=== PATIENT | female | born 1950 | race Caucasian/White ===

== ENCOUNTER 2024-05-31 08:16 | Inpatient (IN) | payer MEDICARE, OTHER ==
[~2024-05-31] VITALS: Ht 167.6 cm; Wt 132.2 kg
--- NOTE | 2024-05-31 14:00 | NUR ---
PT ARRIVED TO ROOM 305 VIA AMBULANCE FROM [facility]. TRANSFERRED TO BED WITH 4 PERSON ASSIST. SKIN APPEARS INTACT OTHER THAN REDNESS TO COCCYX WHICH IS BLANCHABLE. ABLE TO ANSWER QUESTIONS APPROPRIATELY.
[2024-05-31 14:10] VITALS: BP 102/36
[2024-05-31] MEDS ORDERED: Acetaminophen 325 MG TABLET PO PRN (15:35)
[2024-05-31] MEDS ORDERED: FLU VACC TS2024-25(6MOS UP)/PF 45 MCG/0.5 ML SYRINGE IM SCH (15:35)
[2024-05-31] MEDS ORDERED: ABILIFY MYCITE2 M2 PO (15:39)
[2024-05-31] MEDS ORDERED: ASCO500 PO (15:39)
[2024-05-31] MEDS ORDERED: SENNA LAXATIVE8.6 MG PO (15:40)
[2024-05-31] MEDS ORDERED: Calcium Carbon500 MG PO (15:41)
[2024-05-31] MEDS ORDERED: MIRALAX17 GM PO (15:41)
[2024-05-31] MEDS ORDERED: FURO40 PO (15:43)
[2024-05-31] MEDS ORDERED: ESCI10 PO (15:43)
[2024-05-31] MEDS ORDERED: KETO15TC TOP (15:44)
[2024-05-31] MEDS ORDERED: LEVOCETIRIZINE D5 MG PO ×2 (15:49→16:00)
[2024-05-31] MEDS ORDERED: OXAYDO5 M2 PO (15:49)
[2024-05-31] MEDS ORDERED: ATOR80 PO (15:50)
[2024-05-31] MEDS ORDERED: INSULIN LI100 UNIT/6 SC (15:52)
[2024-05-31] MEDS ORDERED: METO25ER PO (15:53)
[2024-05-31] MEDS ORDERED: FLUTICASONE PRO12 G1 INH (15:54)
[2024-05-31] MEDS ORDERED: TIZA4 PO (15:56)
[2024-05-31] MEDS ORDERED: ALBU90OI INH (15:57)
[2024-05-31] MEDS ORDERED: Vitamin D1000 UNI1 PO (15:59)
[2024-05-31] MEDS ORDERED: EZET10 PO (16:00)
[2024-05-31] MEDS ORDERED: NITR.4SL SL (16:01)
[2024-05-31] MEDS ORDERED: INSULANI SC (16:10)
[2024-05-31] MEDS ORDERED: GABA100 PO (16:10)
[2024-05-31] MEDS ORDERED: PANT40 PO (16:11)
[2024-05-31] MEDS ORDERED: MECL25 PO (16:12)
[2024-05-31] MEDS ORDERED: NYSTOP15 GM TOP (16:13)
[2024-05-31] MEDS ORDERED: Magnesium Hydroxide Conc 10 ML UDC PO PRN (16:35)
[2024-05-31] MEDS ORDERED: Bisacodyl 10 MG Supp PR PRN (16:40)
[2024-05-31] MEDS ORDERED: Insulin Glargine-Yfgn 100 Unit/mL 3 ML SYR SC SCH ×2 (17:00→21:00)
[2024-05-31] MEDS ORDERED: Calcium Carbonate 500 MG Tab Chew PO PRN (17:20)
[2024-05-31] MEDS ORDERED: Meclizine HCl 25 MG Tab PO PRN ×2 (17:20→17:40)
[2024-05-31] MEDS ORDERED: Nitroglycerin 0.4 MG SUBL SL PRN (17:20)
[2024-05-31] MEDS ORDERED: OxyCODONE HCL 5 MG TAB PO PRN (17:25)
[2024-05-31] MEDS ORDERED: Albuterol HFA200 ACT/6.7 GM INH INH PRN (17:30)
[2024-05-31] MEDS ORDERED: Mometasone Furoate Inhaler 220 mcg 14 ACT INH SCH (17:35)
--- NOTE | 2024-05-31 18:31 | NUR ---
SHIFT SUMMARY: PT A&OX4/BED REST WITH BATHROOM PRIVLEDGES AT THIS TIME DUE TO SYMPTOMATIC HYPOTENSION. SHE IS IN BED, SITTING UP EATING DINNER, CALL YOLANDA DUNLAP, NO SIGNS OR SYMPTOMS OF DISTRESS. TELE CALLED AT 1717 TO REPORT A 2.18 SEC PAUSE; THIS RN WAS PRESENT THAT THAT TIME AND PATIENT WAS ALERT AND TALKING WITH ME; NO SYMPTOMS. THEY CALLED AGAIN AT 182 TO REPORT ANOTHER PAUSE OF 2.3 SECS. PATIENT AGAIN ALERT AND NO SYMPTOMS. CALLED DR. MASON AND NOTIFIED HIM. NO NEW ORDERS. PLAN OF CARE ONGOING. HD TOMORROW 06/01/24.
[2024-05-31] MEDS ORDERED: Ondansetron HCl 2 MG / ML 2ML Vial IV PRN (19:20)
[2024-05-31 19:34] VITALS: BP 128/61
[2024-05-31] MEDS ORDERED: Atorvastatin 40 MG Tab PO SCH (21:00)
[2024-05-31] MEDS ORDERED: Sennosides 8.6 MG Tab PO SCH (21:00)
[2024-05-31] MEDS ORDERED: Docusate Sodium 100 MG Cap PO SCH (21:00)
[2024-05-31] MEDS ORDERED: Insulin Human Lispro 100 Units/ML 3ML Syringe SC SCH (21:00)
[2024-05-31] MEDS ORDERED: PRED FORTE5 ML BOTHEYES (22:50)
[2024-06-01] VITALS (14 sets, daily range): BP systolic 70–135; BP diastolic 44–86
--- NOTE | 2024-06-01 05:08 | NUR ---
SHIFT SUMMARY PATIENT IS ALERT AND ORIENTED. PATIENT HAS HAD NO ACUTE EVENTS EVENTS THIS SHIFT. PATIENT HAS HAD NO COMPLAINTS OF NAUSEA, SOB OR VOMITTING THIS SHIFT. PATIENT HAS COMPLAINED OF PAIN THIS SHIFT. PATIENT HAS BEEN ON TELE AND HAS ONE EVENT OF PATIENT BRADYING DOWN TO 38 BPM. PATIENT WAS SLEEPING AND NONSYMPTOMATIC DURING EVENT. PATIENT HAS BEEN NPO SINCE MIDNIGHT FOR POSSIBLE STRESS TEST TODAY. BED ALARM IS ON. BED IN LOCKED AND LOWEST POSITION.
[2024-06-01 05:57] LABS: BASOPHILS ABSOLUTE AUTO 0.03 K/mm3 (0.00-0.23); BASOPHILS PERCENT AUTO 0 % (0-2); EOSINOPHILS ABSOLUTE AUTO 0.07 K/mm3 (0.00-0.68); EOSINOPHILS PERCENT AUTO 1 % (0-6); Hematocrit 29.8 % (33.0-51.0); Hemoglobin 9.3 g/dL (11.5-16.0); IMMATURE GRAN ABSOLUTE AUTO 0.15 K/mm3 (0.00-0.10); IMMATURE GRAN PERCENT AUTO 2 % (0-1); LYMPHOCYTES ABSOLUTE AUTO 0.94 K/mm3 (0.84-5.20); LYMPHOCYTES PERCENT AUTO 11 % (21-46); MONOCYTES ABSOLUTE AUTO 0.64 K/mm3 (0.16-1.47); MONOCYTES PERCENT AUTO 8 % (4-13); Mean Corpuscular HGB 32.1 pg (26.0-34.0); Mean Corpuscular HGB Conc 31.2 g/dL (31.5-36.5); Mean Corpuscular Volume 103 fL (80-100); Mean Platelet Volume 10.4 fL (9.1-12.4); NEUTROPHILS ABSOLUTE AUTO 6.51 K/mm3 (1.96-9.15); NEUTROPHILS PERCENT AUTO 78 % (41-73); Platelet Count 213 K/mm3 (150-400); RDW Standard Deviation 48.5 fL (35.1-46.3); White Blood Cell Count 8.34 K/mm3 (4.00-11.30)
[2024-06-01 06:30] LABS: Albumin, Blood 2.9 g/dL (3.4-5.0); Albumin/Globulin Ratio 0.8 (0.8-1.8); Bilirubin, Total 0.3 mg/dL (0.1-1.0); Bun/Creatinine Ratio 9.3 (12.0-20.0); Calcium, Blood 9.5 mg/dL (8.5-10.1); Creatinine, Blood 6.68 mg/dL (0.40-1.00); Globulin, Blood 3.8 g/dL (2.2-4.0); Potassium, Blood 4.8 mmol/L (3.5-5.5); Total Protein, Blood 6.7 g/dL (6.4-8.2)
[2024-06-01] MEDS ORDERED: Pantoprazole Sodium 40 MG Tab PO SCH (07:30)
[2024-06-01] MEDS ORDERED: OxyCODONE HCL 5 MG TAB PO PRN (07:30)
[2024-06-01] MEDS ORDERED: Midodrine 5 MG Tab PO PRN (08:00)
[2024-06-01] MEDS ORDERED: Ezetimibe 10 MG Tab PO SCH (09:00)
[2024-06-01] MEDS ORDERED: Citalopram Hydrobromide 10 MG TAB PO SCH (09:00)
[2024-06-01] MEDS ORDERED: Anticoagulant Sod Citrate Soln 3 ML SYR INJ PRN (09:00)
[2024-06-01] MEDS ORDERED: Gabapentin 100 MG Cap PO SCH (09:00)
[2024-06-01] MEDS ORDERED: Ascorbic Acid 500 MG Tab PO SCH (09:00)
[2024-06-01] MEDS ORDERED: ARIPiprazole 2 MG Tablet PO SCH (09:00)
[2024-06-01] MEDS ORDERED: Heparin Sodium,Porcine 5,000 UNIT/0.5 ML SDV SC SCH (09:00)
[2024-06-01] MEDS ORDERED: Midodrine 5 MG Tab PO ONE (10:25)
--- NOTE | 2024-06-01 10:38 | NUR ---
PT UNABLE TO RECEIVE DIALYSIS TODAY DUE TO LOW BP. NOTIFIED, MIDODRINE ORDERED.
--- NOTE | 2024-06-01 12:28 | NUR ---
PT TO MTX ROOM FOR DIALYSIS POST NUCLEAR MED STUDIES. PT IS ALET AND ORIENTED, PLEASANT AND COOPERATIVE. PT IS CHRONIC DIALYSIS FROM [facility], TRANSFERRED TO THIS FACILITY DUE TO ORTHOSTATIC HYPOTENSION. PT LAST HAD DIALYSIS ON 05/29/24 IN [place]. THEY REMOVED APPROX 3LITRES OF FLUID. THIS IS STANDARD FOR HER. DR ANDREWS CONTACTED AND TX NOT INITIATED DUE TO HYPOTENSION. BP 68/24 AND THEN 75/28. REPORT CALLED TO PADMINI VU RN. PT RETURNED TO MEDICAL FLOOR VIA BED. JERAMY
[2024-06-01] MEDS ORDERED: Midodrine 5 MG Tab PO SCH (14:00)
[2024-06-01 15:09] LABS: Base Excess Venous 4.6 mmol/L; Bicarbonate Venous 27.9 mmol/L (24.0-30.0); PCO2 Venous 53.4 mmHg (38-42); pH Blood Venous 7.36 (7.34-7.37)
--- NOTE | 2024-06-01 15:28 | NUR ---
PT TRANSFERED TO PCU BY PRIMARY RN AND SCIENTIFIC ADVISOR. ASSISTANT AT SURGERY REPORTED TO THIS RN THAT BP WAS LOW. THIS RN TO ROOM TO CHECK ON PATIENT. PATIENT WAS LETHARGIC, FALLING ASLEEP DURING CONVERSATION STATING SHE WAS DIZZY. MD NOTIFIED. MIDODRINE INCREASED. PT REMAINED DROWSY AND DIFFICULT TO STIMULATE. SPO2 <90%, O2 APPLIED, RT TO SET UP HOME CPAP. CPAP ON WITH 2L BLEED IN TO MAINTAIN SPO2 >90%. BP REMAINED LOW WITH MAPS RANGING FROM LOW 50S-MID 60S. MD NOTIFIED AGAIN AND PT MOVED TO PCU FOR CLOSER MONITORING. BEDSIDE REPORT GIVEN TO PCU PRIMARY RN. PT EDUCATION ON NEED TO TRANSFER. THIS RN NOTIFIED SPOUSE OF TRANSFER.
--- NOTE | 2024-06-01 17:51 | NUR ---
PT SUMMARY; PT TRANSFERRED FROM MEDICAL FLOOR AT APPROX 1400. PT IS HERE FOR HYPOTENSION. PT HAD DIALYSIS THIS MORNING AND WAS UNABLE TO FINISH DUE TO HYPOTENSION. PT WAS ON 2L OF O2 VIA NASAL CANNULA UPON ARRIVAL, HOME CPAP AT THE BEDSIDE. VBG WAS DONE UPON ARRIVAL CO2 ON THE 50'S, DR JACOME CAME BY TO SEE PT ECHO WAS ORDERED. DR ANDREWS WAS CONSULTED ABLE TO COME BY AND SEE PT THIS AFTERNOON WELL. PT DOING OKAY AT THIS TIME, WILL WAIT FOR ECHO TO BE DONE POSSIBLY IN AM AND DIALYZE TOMMOROW IF PT TOLERATES, OKAY TO CNTINUE MIDODRINE AT THIS TIME. SBP 90-110'S, DBP 40-50'S, MAP KEPT ABOVE 60'S, SATS ABOVE 95% ON 2L OF O2, HRR SR 60'S, PT DENIES CHEST PAIN/PRESSURE. AFEBRILE. PT ALERT AND ORIENTED X3-4 FORGETFUL AT TIMES. PT NOT MAKING MUCH URINE AT THIS TIME BUT ABLE TO TELL IF SHE NEEDS TO GO, ATTENDS IN [place]. PT CURRENTLY BEING LIFTED TO REPOSITION DUE TO WEAKNESS. PT NOW EATING DINNER WITH NO ISSUES. PT TO BE NPO AT MIDNIGHT FOR SECOND PORTION OF STRESS IN AM. NO CAFFEINE AT THIS TIME, PT HAS BEEN CALLING APPROPRIATELY, WILL REPORT TO ONCOMING SHIFT
[2024-06-02] VITALS (17 sets, daily range): BP systolic 95–137; BP diastolic 43–71
[2024-06-02 04:27] LABS: BASOPHILS ABSOLUTE AUTO 0.06 K/mm3 (0.00-0.23); BASOPHILS PERCENT AUTO 1 % (0-2); EOSINOPHILS ABSOLUTE AUTO 0.17 K/mm3 (0.00-0.68); EOSINOPHILS PERCENT AUTO 2 % (0-6); Hematocrit 29.2 % (33.0-51.0); Hemoglobin 9.1 g/dL (11.5-16.0); IMMATURE GRAN ABSOLUTE AUTO 0.21 K/mm3 (0.00-0.10); IMMATURE GRAN PERCENT AUTO 2 % (0-1); LYMPHOCYTES ABSOLUTE AUTO 1.85 K/mm3 (0.84-5.20); LYMPHOCYTES PERCENT AUTO 19 % (21-46); MONOCYTES ABSOLUTE AUTO 1.32 K/mm3 (0.16-1.47); MONOCYTES PERCENT AUTO 14 % (4-13); Mean Corpuscular HGB 31.8 pg (26.0-34.0); Mean Corpuscular HGB Conc 31.2 g/dL (31.5-36.5); Mean Corpuscular Volume 102 fL (80-100); Mean Platelet Volume 10.7 fL (9.1-12.4); NEUTROPHILS ABSOLUTE AUTO 5.94 K/mm3 (1.96-9.15); NEUTROPHILS PERCENT AUTO 62 % (41-73); Platelet Count 207 K/mm3 (150-400); RDW Coefficient Variation 13.3 % (11.7-14.2); RDW Standard Deviation 49.7 fL (35.1-46.3); Red Blood Cell Count 2.86 M/mm3 (3.80-5.20); White Blood Cell Count 9.55 K/mm3 (4.00-11.30)
[2024-06-02 04:47] LABS: Albumin, Blood 2.9 g/dL (3.4-5.0); Anion Gap 16 mmol/L (3-11); Blood Urea Nitrogen 77 mg/dL (8-24); Bun/Creatinine Ratio 9.8 (12.0-20.0); CO2, Blood 25 mmol/L (21-32); Calcium, Blood 9.1 mg/dL (8.5-10.1); Chloride, Blood 95 mmol/L (98-108); Creatinine, Blood 7.87 mg/dL (0.40-1.00); Glomerular Filtration Rate 5 (60-); Glucose, Blood 112 mg/dL (70-99); Iron Serum 41 ug/dL (50-170); Percent Saturation 17.7 % (15.0-50.0); Phosphorus, Blood 5.4 mg/dL (2.5-4.9); Potassium, Blood 4.3 mmol/L (3.5-5.5); Sodium, Blood 132 mmol/L (136-145); Total Iron Binding Capacity 231 ug/dL (250-450)
--- NOTE | 2024-06-02 04:57 | NUR ---
SHIFT SUMMARY S/P ORTHOSTATIC HYPOTENSION. NO ACUTE CHANGES OVERNIGHT. PT REMAINED MILDLY HYPOTENSIVE T/O NIGHT. BP IMPROVED WHEN PT WOKEN UP FOR READINGS. TELE - SINUS RHYTHM @72. O2 SAT >90% ON 2L O2 c HOME CPAP, PT DESAT TO MID 80s WHEN CPAP REMOVED. PT NPO SINCE MIDNIGHT R/T ANTICI[ATED PART 2 OF STRESS TEST TODAY. BEDREST AT THIS TIME, Q2 TURNS c CEILING LIFT. CALL LIGHT IN REACH, BED IN LOWEST POSITION, WILL REPORT TO DAY RN.
--- NOTE | 2024-06-02 07:59 | NUR ---
ECHO CURRENTLY GETTING DONE IN ROOM. PT CAN HAVE BREAKFAST AFTER ECHO BUT WILL HOLD LUNCH FOR A STRESS TEST THIS AFTERNOON.
[2024-06-02] MEDS ORDERED: Insulin Glargine-Yfgn 100 Unit/mL 3 ML SYR SC SCH (09:00)
--- NOTE | 2024-06-02 09:02 | NUR ---
CALL TO : A CALL WAS PLACED TO DR. PEÑA REGARDING WHETHER OR NOT SHE WAS GOING TO GET DIALYSIS OR NOT TODAY. HE ASKED FOR HER LAST BLOOD PRESSURE AND STATED IF HER SYSTOLIC IS >90 THEN SHE WOULD GET DIALYSIS TODAY. HE IS GOING TO PUT IN ORDERS FOR DIALYSIS.
[2024-06-02] MEDS ORDERED: Anticoagulant Sod Citrate Soln 3 ML SYR INJ PRN (09:30)
--- NOTE | 2024-06-02 11:38 | NUR ---
CALL TO DR. ANDREWS: DIALYSIS WAS CUT SHORT DUE TO BLEEDING AND INFILTRATION AT LEFT ARM FISTULA SITE. A CALL WAS PLACED TO DR. ANDREWS AND HE ORDERED A DUPLEX DOPPLER TO BE DONE FOR A FISTULAGRAM AND HE WILL BE CONTACTING [facility] FOR FURTHER TESTS.
--- NOTE | 2024-06-02 12:27 | NUR ---
CALL TO DR. SAUCEDA: CALLED TO UPDATE REGARDING DIALYSIS IT WAS STOPPED EARLY DUE TO HEAVY BLEEDING, FISTULA INFILTRATION AND A HEMATOMA AT THE SITE. LET HIM KNOW THAT DR. ANDREWS ORDERED A DUPLEX DOPPLER-FISTULAGRAM FOR VENOUS STENOSIS. I ASKED ABOUT ADDING PREDNISOLONE OPTHALMIC EYE DROPS TO THE PATIENTS EMAR.
[2024-06-02] MEDS ORDERED: Regadenoson 0.4 MG/5 ML SYRINGE ONE (13:46)
[2024-06-02] MEDS ORDERED: Aminophylline 250MG / 10ML 10 ML Vial ONE (13:46)
[2024-06-02] MEDS ORDERED: PrednisoLONE 1% Opth Susp 5 ML LEFTEYE SCH (14:00)
--- NOTE | 2024-06-02 14:02 | NUR ---
STRESS TEST UPDATE: PATIENT WAS GIVEN A SIP OF DECAF COFFEE FROM FAMILY IN ROOM, LET [employer] TECH KNOW AND THEY STATED THEY WOULD NOT DO IT TODAY BUT RESCHEDULED FOR TOMORROW, NPO AT MIDNIGHT.
--- NOTE | 2024-06-02 15:53 | NUR ---
DR. ANDREWS AT BEDSIDE: AT BEDSIDE, LOOKED AT HER FISTULA AND STATED HE WAS GOING TO INPUT ORDERS FOR IR TO DO A FISTULANGIO HOPEFULLY 06/03.
--- NOTE | 2024-06-02 17:41 | NUR ---
END OF SHIFT SUMMARY: PT IS A&OX4 BUT DOES GET FORGETFUL AT TIMES. SATTING >90% ON 2LITERS AND WEARS CPAP WHEN SLEEPING, DOES TAKE IT OFF AND NEEDS REORIENTED TO WEAR IT WHILE SLEEPING. ON TELE SHOWING SINUS RYTHM WITH RATE IN 60-70'S. BLOOD PRESSURE HAS BEEN STABLE WITH MIDODRINE PER EMAR. TRIED TO GET DIALYSIS THIS MORNING BUT WAS CUT SHORT SHE WAS BLEEDING COPIOUSLY, FISTULA INFILTRATED AND THERE WAS A HEMATOMA. AN ECHO WAS DONE THIS MORNING WITH RESULTS IN CHART. A FISTULAGRAM WAS DONE AND AWAITING RESULTS. AWAITING THE 2ND HALF OF STRESS TEST TO BE DONE ON 06/03. PATIENT DID NOT NEED COVERAGE FOR BLOOD SUGARS THIS SHIFT. IS A LIFT PATIENT TO BOOST AND READJUST IN ROOM. WILL NOTIFY TO ONCOMING DIGITAL RESEARCH ANALYST NURSE.
[2024-06-02 21:50] LABS: Base Excess Venous -0.7 mmol/L; Bicarbonate Venous 23.7 mmol/L (24.0-30.0); PCO2 Venous 45.4 mmHg (38-42); pH Blood Venous 7.35 (7.34-7.37)
[2024-06-03] VITALS (23 sets, daily range): BP systolic 81–134; BP diastolic 38–103
[2024-06-03 04:14] LABS: BASOPHILS ABSOLUTE AUTO 0.03 K/mm3 (0.00-0.23); BASOPHILS PERCENT AUTO 0 % (0-2); EOSINOPHILS ABSOLUTE AUTO 0.02 K/mm3 (0.00-0.68); EOSINOPHILS PERCENT AUTO 0 % (0-6); Hemoglobin 8.8 g/dL (11.5-16.0); IMMATURE GRAN ABSOLUTE AUTO 0.12 K/mm3 (0.00-0.10); IMMATURE GRAN PERCENT AUTO 1 % (0-1); LYMPHOCYTES ABSOLUTE AUTO 1.19 K/mm3 (0.84-5.20); LYMPHOCYTES PERCENT AUTO 11 % (21-46); MONOCYTES ABSOLUTE AUTO 1.01 K/mm3 (0.16-1.47); MONOCYTES PERCENT AUTO 9 % (4-13); Mean Corpuscular HGB Conc 32.6 g/dL (31.5-36.5); Mean Corpuscular Volume 98 fL (80-100); Mean Platelet Volume 10.4 fL (9.1-12.4); NEUTROPHILS ABSOLUTE AUTO 8.57 K/mm3 (1.96-9.15); NEUTROPHILS PERCENT AUTO 78 % (41-73); Platelet Count 206 K/mm3 (150-400); RDW Coefficient Variation 13.2 % (11.7-14.2); RDW Standard Deviation 46.9 fL (35.1-46.3); Red Blood Cell Count 2.75 M/mm3 (3.80-5.20); White Blood Cell Count 10.94 K/mm3 (4.00-11.30)
[2024-06-03 04:29] LABS: International Normalized Ratio 0.95; Prothrombin Time Results 10.2 Sec (9.7-11.5)
--- NOTE | 2024-06-03 06:28 | NUR ---
SHIFT SUMMARY PT A&O X1-2; ABLE TO PROVIDE NAME AND DATE OF BUT AFTER SEVERAL TIMES OF ASKING. PT ABLE TO STATE SHE IS IN [place], BUT UNSURE OF WHERE AT IN [place]. NOT ORIENTED TO DATE OR TIME. PT MORE LETHARGIC AND SPACEY, NOT TRACKING OR MAKING MUCH EYE CONTACT. PT FOLLOWING MOST COMMANDS, RESPONSES ARE SLOWED. PT WITH TWITCHING MOVEMENTS AND OVERALL WEAKNESS. VSS; SBP 99 - 126 WITH ALL MAPS GREATER THAN 65, SR WITH RATE IN 70'S, AFEBRILE, USING HOME CPAP. PT CONTINUES TO TAKE CPAP OFF RANDOMLY AND UNABLE TO STATE WHY SHE CONTINUES TO DO THIS. PT ALSO TAKING TELE LEADS AND GOWN OFF AT TIMES. DENIES PAIN, NO EVENTS OF CP/PRESSURE, SOB, N/V OR DIZZINESS. Q2 REPOSITIONING AND ATTENDS CHANGED PRN. PT WITH BM X1; SMALL UNFORMED AND BROWN IN COLOR. PT DID NOT VOID THIS SHIFT; BLADDER SCAN SHOWED 642 MLS. THIS RN STRAIGHT CATH'D [T X1; 550 UOP WITH 70 MLS RESIDUAL. D/T PT CHANGE IN MENTATION AND INCREASED CONFUSION; THIS RN NOTIFIED RESIDENT AND REPEAT VBG ORDERED. SEE RESULTS; NO MAJOR CHANGES FROM PREVIOUS VBG. WILL UPDATE ONCOMING RN.
[2024-06-03 06:49] LABS: Albumin, Blood 2.8 g/dL (3.4-5.0); Albumin/Globulin Ratio 0.8 (0.8-1.8); Bilirubin, Total 0.6 mg/dL (0.1-1.0); Bun/Creatinine Ratio 9.9 (12.0-20.0); Creatinine, Blood 8.52 mg/dL (0.40-1.00); Globulin, Blood 3.6 g/dL (2.2-4.0); Phosphorus, Blood 6.2 mg/dL (2.5-4.9); Potassium, Blood 4.4 mmol/L (3.5-5.5); Total Protein, Blood 6.4 g/dL (6.4-8.2)
--- NOTE | 2024-06-03 08:25 | NUR ---
NURSING PCU DAYSHIFT: Assumed care of pt at approx 0700. Alert, mostly oriented though forgetful at times. Very pleasant, cooperative w/care. Obese, requires assistance w/positioning, 2 staff assist to stand, general weakness of all ext's, jerking movements of UE's which pt states is normal, decreased fine motor skills. Tele in place, NSR, no c/o CP/pressure, SBP 119 prior to a.m. meds, no noted edema. L/S cta t/o, dim lower lobes, denies dyspnea, O2 sat upper 90's on 4L at initial assessment, c/o cough producing thick/white sputum. Abd obese, large hernia noted, BT+, c/o 3/10 epigastric/"reflux" which improves w/positioning per pt, oliguria which pt states is normal. S/L 22g PIV to RW, fistula to BIENVENIDO/AC, +bruit/thrill. No s/s of acute distress this a.m. Decreased O2 to 2L, sat remains >95%. Plan for fistulagram w/IR this afternoon, also 2nd portion of stress test at approx 1400. HD scheduled this evening post procedures/tests. Pt denies any current needs, call light in reach, bed alarm set for safety. Awaiting rounding from PMD and consults, monitor for changes.
[2024-06-03] MEDS ORDERED: Epoetin Alfa-EPBX 4,000 UNIT/ML 1ML Vial IV SCH (09:00)
[2024-06-03] MEDS ORDERED: Regadenoson 0.4 MG/5 ML SYRINGE ONE (13:07)
[2024-06-03] MEDS ORDERED: Caffeine Citrated 60 MG/3 ML Vial ONE (13:08)
--- NOTE | 2024-06-03 15:30 | NUR ---
DIALYSIS PT WAS TO HAVE FISTULAGRAM. CHECKED ON TIME FOR PROCEDURE, SAID SOME TIME AFTER 1230. AFTER AM PTS COMPLETED, PREPARAED ROOM FOR NEXT SET OF PTS. LATER FOUND NOTE SAYING IT WOULD BE LATER THIS EVENING. WE WERE NOT NOTIFIED OF CHANGE OF TIME
[2024-06-03] MEDS ORDERED: NS 1,000 ML IV ONE ×2 (16:11→16:30)
[2024-06-03] MEDS ORDERED: Heparin Sodium 1000 Units/ML 10ML MDV ONE (16:11)
--- NOTE | 2024-06-03 16:18 | NUR ---
PATIENT WAS OUT OF THE ROOM DURING MY ROUNDS. DISCUSSED WITH BEDSIDE RN. CALLED [facility]. COPY FAXED TO US, SENT TO MEDICAL RECORDS AND PROVIDED TO THE BEDSIDE RN. PC WILL CONTINUE TO FOLLOW
[2024-06-03] MEDS ORDERED: Midazolam HCl 1MG / ML 2ML Vial ONE (16:29)
[2024-06-03] MEDS ORDERED: FentaNYL Citrate 50 MCG/ML 2 ML Injection ONE (16:30)
--- NOTE | 2024-06-03 18:26 | NUR ---
NURSING PCU DAYSHIFT SUMMARY: Pt has been pleasant t/o shift. Continues to experience jerking/sporadic movements of UE's and facial twitching, increased t/o afternoon. Lethargy and confusion have also increased t/o shift though pt is arousable and continues to follow commands. 2nd portion of stress test completed, results reviewed. Pt to this afternoon for fistulagram, tolerated well w/no interventions required. BM x2 this shift, bladder scan and straight cath completed after failed attempts to urinate. Remains NSR, BP stable, used 2L NC while awake and home CPAP w/2L bleed in during periods of rest. Pt currently sitting up in bed having supper. Plan for HD this evening. No s/s of acute distress, monitor until rpt is given to CHRIS RN.
--- NOTE | 2024-06-03 19:00 | NUR ---
ASSUMED CARE ASSUMED CARE OF PATIENT AT THIS TIME. PT IS AWAKE AND ALERT. ORIENTED TO SELF AND TO PLACE. CONFUSED CONVERSATON. SKIN IS SLIGHTLY CLAMMY. MONITOR SHOWS NSR, RATE 70s. BP STABLE. O2 SATS 95% ON 2LNC. RESPIRATIONS EVEN AND UNLABORED. DENIES C/O PAIN OR DISCOMFORT AT THIS TIME. TO RECEIVE DIALYSIS AT THIS TIME. LEFT ARM WITH GOOD BRUIT/THRILL. HEMATOMA NOTED AT SITE OF FISTULA.
--- NOTE | 2024-06-03 22:00 | NUR ---
DIALYSIS DIALYSIS IS COMPLETE AND PT IS BACK IN ROOM. LEFT ARM FISTULA WITH DRSG D/I. PT IS RESTING WITH EYES CLOSED- ROUSES EASILY TO VERBAL STIMULI. CONTINUES WITH SLIGHTLY CONFUSED CONVERSATION. ORIENTED TO SELF AND TO PLACE. SEE SHIFT ASSESSMENT FOR FULL ASSESSMENT.
[2024-06-04] VITALS (17 sets, daily range): BP systolic 70–126; BP diastolic 39–90
[2024-06-04 04:28] LABS: Albumin, Blood 2.4 g/dL (3.4-5.0); Albumin/Globulin Ratio 0.6 (0.8-1.8); Bilirubin, Direct 0.2 mg/dL (0.0-0.3); Bilirubin, Indirect 0.3 mg/dL (0.1-0.7); Bilirubin, Total 0.5 mg/dL (0.1-1.0); Bun/Creatinine Ratio 9.8 (12.0-20.0); Calcium, Blood 8.3 mg/dL (8.5-10.1); Creatinine, Blood 6.42 mg/dL (0.40-1.00); Globulin, Blood 3.7 g/dL (2.2-4.0); Phosphorus, Blood 5.1 mg/dL (2.5-4.9); Potassium, Blood 3.7 mmol/L (3.5-5.5); Total Protein, Blood 6.1 g/dL (6.4-8.2)
--- NOTE | 2024-06-04 05:45 | NUR ---
SHIFT SUMMARY NO ACUTE CHANGES DURING NOC. AWAKE MOST OF NOC. CONTINUES TO BE ORIENTED TO SELF AND OCCASIONALLY TO PLACE. FREQUENT CONFUSED CONVERSATION. REPEATEDLY STATES THAT SHE IS GOING TO [place] FOR A KIDNEY AND BONE MARROW TRANSPLANT. AUDITORY HALLUCINATIONS NOTED AT TIMES. VSS. O2 2L NC TO MAINTAIN SATS >90%. PT WORE CPAP WITH 2L BLEED-IN FOR APPROXIMATELY AN HOUR WHILE SHE SLEPT. INCONTINENT OF LOOSE BROWN STOOL X 3. INCONTINENT OF URINE X 1. BLADDER SCAN DONE THIS AM- SHOWED 80-100MLS OF URINE. NO TWITCHING/JERKING MOVEMENTS NOTED. WILL REPORT TO ONCOMING RN WHEN AVAILABLE.
[2024-06-04] MEDS ORDERED: Insulin Glargine-Yfgn 100 Unit/mL 3 ML SYR SC SCH (09:00)
[2024-06-04 09:23] LABS: BASOPHILS ABSOLUTE AUTO 0.03 K/mm3 (0.00-0.23); BASOPHILS PERCENT AUTO 0 % (0-2); EOSINOPHILS ABSOLUTE AUTO 0.04 K/mm3 (0.00-0.68); EOSINOPHILS PERCENT AUTO 0 % (0-6); Hematocrit 24.6 % (33.0-51.0); Hemoglobin 8.1 g/dL (11.5-16.0); IMMATURE GRAN ABSOLUTE AUTO 0.09 K/mm3 (0.00-0.10); IMMATURE GRAN PERCENT AUTO 1 % (0-1); LYMPHOCYTES ABSOLUTE AUTO 1.58 K/mm3 (0.84-5.20); LYMPHOCYTES PERCENT AUTO 12 % (21-46); MONOCYTES ABSOLUTE AUTO 1.41 K/mm3 (0.16-1.47); MONOCYTES PERCENT AUTO 10 % (4-13); Mean Corpuscular HGB 32.1 pg (26.0-34.0); Mean Corpuscular HGB Conc 32.9 g/dL (31.5-36.5); Mean Corpuscular Volume 98 fL (80-100); Mean Platelet Volume 10.8 fL (9.1-12.4); NEUTROPHILS ABSOLUTE AUTO 10.53 K/mm3 (1.96-9.15); NEUTROPHILS PERCENT AUTO 77 % (41-73); Platelet Count 207 K/mm3 (150-400); RDW Coefficient Variation 13.2 % (11.7-14.2); RDW Standard Deviation 46.6 fL (35.1-46.3); Red Blood Cell Count 2.52 M/mm3 (3.80-5.20); White Blood Cell Count 13.68 K/mm3 (4.00-11.30)
[2024-06-04] MEDS ORDERED: Albumin (Human) 25gm/100ml 100 ML IV SCH (09:25)
--- NOTE | 2024-06-04 10:37 | NUR ---
NURSE NOTE PT REMAINS AT DIALYSIS AT THIS TIME.
[2024-06-04] MEDS ORDERED: Midodrine 5 MG Tab PO SCH ×2 (16:00)
--- NOTE | 2024-06-04 18:13 | NUR ---
SHIFT SUMMARY PCU TRANSFER 1635, A&0X3/PLEASANT & COOPERATIVE WITH CARE, VSS/RA, SMILEY SOFT DIET/EATS INDEPENDENTLY, AMB 2 PP MAX ASSIST WITH GB/FWW, UP TO CHAIR, NO VOID R/T ESRD/HD. WILL REPORT TO ONCOMING CHRIS RN.
[2024-06-05 00:52] VITALS: BP 127/72
[2024-06-05 04:34] VITALS: BP 116/59
[2024-06-05 05:02] LABS: BASOPHILS ABSOLUTE AUTO 0.04 K/mm3 (0.00-0.23); BASOPHILS PERCENT AUTO 0 % (0-2); EOSINOPHILS ABSOLUTE AUTO 0.08 K/mm3 (0.00-0.68); EOSINOPHILS PERCENT AUTO 1 % (0-6); IMMATURE GRAN ABSOLUTE AUTO 0.13 K/mm3 (0.00-0.10); IMMATURE GRAN PERCENT AUTO 1 % (0-1); LYMPHOCYTES ABSOLUTE AUTO 1.34 K/mm3 (0.84-5.20); LYMPHOCYTES PERCENT AUTO 10 % (21-46); MONOCYTES ABSOLUTE AUTO 1.35 K/mm3 (0.16-1.47); MONOCYTES PERCENT AUTO 10 % (4-13); Mean Corpuscular Volume 100 fL (80-100); Mean Platelet Volume 10.7 fL (9.1-12.4); NEUTROPHILS ABSOLUTE AUTO 10.04 K/mm3 (1.96-9.15); NEUTROPHILS PERCENT AUTO 77 % (41-73); Platelet Count 211 K/mm3 (150-400); RDW Coefficient Variation 13.3 % (11.7-14.2); RDW Standard Deviation 48.7 fL (35.1-46.3); White Blood Cell Count 12.98 K/mm3 (4.00-11.30)
[2024-06-05 05:23] LABS: Alanine Aminotransfer (ALT/SGP 50 U/L (12-78); Albumin, Blood 2.6 g/dL (3.4-5.0); Albumin/Globulin Ratio 0.7 (0.8-1.8); Alk Phos 148 U/L (50-136); Anion Gap 13 mmol/L (3-11); Aspartate Aminotrans (AST/SGOT 39 U/L (12-37); Bilirubin, Total 0.5 mg/dL (0.1-1.0); Blood Urea Nitrogen 42 mg/dL (8-24); Bun/Creatinine Ratio 8.2 (12.0-20.0); CO2, Blood 27 mmol/L (21-32); Chloride, Blood 102 mmol/L (98-108); Creatinine, Blood 5.14 mg/dL (0.40-1.00); Globulin, Blood 3.8 g/dL (2.2-4.0); Glomerular Filtration Rate 8 (60-); Glucose, Blood 121 mg/dL (70-99); Phosphorus, Blood 4.4 mg/dL (2.5-4.9); Potassium, Blood 3.7 mmol/L (3.5-5.5); Sodium, Blood 138 mmol/L (136-145); Total Protein, Blood 6.4 g/dL (6.4-8.2)
--- NOTE | 2024-06-05 06:48 | NUR ---
SHIFT SUMMARY PT A&O X3-4, WITH INTERMITTENT CONFUSION. FORGETFULNES NOTED. VSS; NO ACUTE EVENTS. PT HOME CPAP SET UP IN ROOM, PT USED DURING THE NIGHT. PT TOLERATING PO INTAKE WELL. PT DIALYSIS PT, NO URINE OUTPUT THIS SHIFT. BLADDER SCAN SHOWED 336 MLS, WILL UPDATE ONCOMING RN. PT WITH SMALL BM - SMEAR THIS SHIFT; CLEANED AND CHANGED PRN.
[2024-06-05 07:05] VITALS: BP 139/56
[2024-06-05] MEDS ORDERED: MIDODRINE HCL10 M1 PO (12:40)
--- NOTE | 2024-06-05 16:26 | NUR ---
DISCHARGE SUMMARY S/P HYPOTENSION, A/OX4 THOUGH SHE WAS FORGETFUL, VSS, TOLERATING PO, AMBULATING WELL, SHE REPORTS IMPROVEMENT IN HER MOBILITY AND SHE IS NOT GETTING LIGHT HEADED OR DIZZY WHEN AMBULATING, DENIES SOB. DISCUSSED DISCHARGE INFORMATION WITH HER INCLUDING HOME CARE, MEDICATIONS, HOME HEALTH, AND FOLLOWING UP WITH HER PCP. NO QUESTIONS AT TIME OF DISCHARGE, ESCORTED OUT VIA WC TO PRIVATE AUTO TO GO HOME.
== END 2024-06-05 15:42 | disposition home health service (06) | DRG 312 ==
LOC: MEDS 08:16 → PCU 06-01 14:22 → SURS 06-01 15:34 → PCU 06-01 15:34 → SURS 06-04 16:26
PROVIDERS: Family Medicine; Hospitalist; Registered Nurse; Student in an Organized Health Care Education/Training Program; ADMIT Internal Medicine
DX: I95.1 Orthostatic hypotension (principal); N18.6 End stage renal disease; J96.01 Acute respiratory failure with hypoxia; I13.2 Hypertensive heart and chronic kidney disease with heart failure and with stage 5 chronic kidney disease, or end stage renal disease; I50.32 Chronic diastolic (congestive) heart failure; Z66 Do not resuscitate; J44.9 Chronic obstructive pulmonary disease, unspecified; E11.22 Type 2 diabetes mellitus with diabetic chronic kidney disease; R07.89 Other chest pain; E78.5 Hyperlipidemia, unspecified; D63.1 Anemia in chronic kidney disease; Z99.2 Dependence on renal dialysis; Z87.19 Personal history of other diseases of the digestive system; Z86.73 Personal history of transient ischemic attack (TIA), and cerebral infarction without residual deficits; Z98.890 Other specified postprocedural states; Z88.6 Allergy status to analgesic agent; Z79.51 Long term (current) use of inhaled steroids; Z79.899 Other long term (current) drug therapy
CPT/HCPCS: 36415; 71045; 76937; 78452; 80053; 80069; 82248; 82533; 82803; 82947; 83540; 83550; 83735; 84100; 84443; 85025; 85610; 93017; 93990; 94640; 94664; 94760; 94762; 96372; 96374; 97110; 97116; 97162; 97166; 97530; A9270; A9500; C1894; C8929; G0378; J0280; J0706; J1644; J1815; J2250; J2405; J2785; J3010; J7030; P9047; Q5106; Q9957; Q9967